=== PATIENT | female | born 1950 | race Native Hawaiian/Other Pacific Islander ===

== ENCOUNTER 2019-09-27 11:05 | Emergency (ER) | payer MEDICARE ==
--- NOTE | 2019-09-27 11:41 | Event Note ---
ED Screening Note Date of service: 09/27/19 Time: 11:37 ED Screening Note: 69 y.o. F. that presents to the ER with right sided abdominal pain and diarrhea x 2 months. Reports pain worse this week. States everything she eat or drink it come back out. 09/19/19 scheduled for cholecystectomy with [facility] and unable due to insurance. This initial assessment/diagnostic orders/clinical plan/treatment(s) is/are subject to change based on patients health status, clinical progression and re- assessment by fellow clinical providers in the ED. Further treatment and workup at subsequent clinical providers discretion. Patient/guardian urged not to elope from the ED as their condition may be serious if not clinically assessed and managed. Initial orders include: Labs CT of abdomen and pelvis
--- NOTE | 2019-09-27 12:38 | Emergency Department Report ---
ED Abdominal Pain HPI - General Chief Complaint: Abdominal Pain Stated Complaint: SIDE PAIN Time Seen by Provider: 09/27/19 11:37 Source: patient Mode of arrival: Ambulatory Limitations: No Limitations - History of Present Illness Initial Comments: 69-year-old female presents to the emergency room for right upper quadrant pain for 2 months. Patient reports that she was told that she has gallstones. Patient admits to nausea no vomiting but diarrhea x1 week. Patient states that she was scheduled to have surgery at [facility] but [facility] does not accept her insurance. Patient reports that the pain to the right upper quadrant radiates to her right back and shoulder. Patient states that she has a history of gastritis but Mylanta and Desitin is not helping. Patient reports she is not able to drink or eat secondary to pain and diarrhea. Patient reports the pain is worse with breathing she has lost weight. She reports her pain is a 7-8 out of 10. She has an allergy to flu and trazodone. Patient has a past medical history of hypertension gallstones hypothyroidism and glaucoma. Location: RUQ Radiation: back (right upper back and shoulder blade) Severity: severe Severity scale (0 -10): 7 Quality: stabbing, aching Consistency: constant Improves With: nothing Worsens With: other (Deep breath and movement) Associated Symptoms: nausea, diarrhea - Related Data Previous Rx's Medication Instructions Recorded Last Taken Type Acetaminophen/Codeine [Tylenol 1 tab PO Q6H PRN #12 tab 09/27/19 Unknown Rx /Codeine # 3 tab] Allergies Allergy/AdvReac Type Severity Reaction Status Date / Time Influenza Virus Vaccines Allergy Unknown Verified 09/27/19 12:42 trazodone Allergy Unknown Verified 09/27/19 12:42 ED Review of Systems ROS: Stated complaint: SIDE PAIN Other details as noted in HPI Comment: All other systems reviewed and negative ED Past Medical Hx - Past Medical History Previous Medical History?: Yes Hx Hypertension: Yes Additional medical history: gallstones. hypothyroid. glaucoma - Social History Smoking Status: Never Smoker Substance Use Type: None - Medications Home Medications: Home Medications Medication Instructions Recorded Confirmed Last Taken Type Acetaminophen/Codeine [Tylenol 1 tab PO Q6H PRN #12 tab 09/27/19 Unknown Rx /Codeine # 3 tab] ED Physical Exam - General Limitations: No Limitations General appearance: alert - Head Head exam: Present: atraumatic, normocephalic - Eye Eye exam: Present: normal appearance - ENT ENT exam: Present: mucous membranes dry - Neck Neck exam: Present: normal inspection, full ROM - GI/Abdominal GI/Abdominal exam: Present: soft, tenderness - Extremities Exam Extremities exam: Present: normal inspection, full ROM - Back Exam Back exam: Present: normal inspection, full ROM - Neurological Exam Neurological exam: Present: alert, oriented X3 - Psychiatric Psychiatric exam: Present: normal affect, normal mood - Skin Skin exam: Present: warm, dry, intact, normal color. Absent: rash ED Course Vital Signs 09/27/19 11:35 Temperature 97.5 F L Pulse Rate 70 Respiratory 18 Rate Blood Pressure 149/95 O2 Sat by Pulse 96 Oximetry ED Medical Decision Making - Lab Data Result diagrams: 09/27/19 12:02 09/27/19 12:02 - Radiology Data Radiology results: report reviewed Patient: ROSIO MURRAY MR#: [id number] : 1950 Acct:[id number] Age/Sex: 69 / F ADM Date: 09/27/19 Loc: ED Attending Dr: Ordering Physician: CRISTOBAL TEMPLE Date of Service: 09/27/19 Procedure(s): CT abdomen pelvis w con Accession Number(s): [id number] cc: CRISTOBAL TEMPLE CT abdomen pelvis w con INDICATION: right sided abdominal pain. TECHNIQUE: All CT scans at this location are performed using the following dose modulation technique: Automated exposure control. Helical slices were obtained through the abdomen and pelvis. 100 cc of Omnipaque 300 is administered. COMPARISON: None available. FINDINGS: Abdomen: Heart is enlarged. There is fatty infiltration of the liver. There is a small hypodensity in the right lobe of the liver is too small to characterize but likely represents a cyst. The spleen, pancreas, adrenal glands, and right kidney show no acute abnormality. There is a cyst in the mid left kidney. There is no adenopathy. The aorta is normal in diameter. There is no obstruction, inflammation, or free air. There are no abnormal fluid collections. Pelvis: The appendix is unremarkable. There is no obstruction or inflammation. There are no abnormal collections. There is mild wall thickening noted in the rectum which may be due to the collapsed state of the bowel. This could represent proctitis. There are no abnormal fluid collections. On review of bone windows, no acute osseous abnormalities are seen. Postoperative changes are noted in the lower lumbar spine. There are degenerative changes noted in the imaged spine. There is degenerative change in the hips. IMPRESSION: 1. There is no obstruction, inflammation, or free air. There are no abnormal fluid collections. There is mild apparent wall thickening in the rectum which may simply be due to the collapsed state of the bowel. There is possible this could represent proctitis. Signer Name: Albert Gonsalez MD Signed: 09/27/2019 2:21 PM Workstation Name: [id number] Transcribed By: Dictated By: Albert Gonsalez MD Electronically Authenticated By: Albert Gonsalez MD Signed Date/Time: 09/27/191420 DD/ 14 TD/TT: - Medical Decision Making 69-year-old female presents to the emergency room for right upper quadrant pain for 2 months. Patient reports that she was told that she has gallstones. Patient admits to nausea no vomiting but diarrhea x1 week. Patient states that she was scheduled to have surgery at [facility] but [facility] does not accept her insurance. Patient reports that the pain to the right upper quadrant radiates to her right back and shoulder. Patient states that she has a history of gastritis but Mylanta and Desitin is not helping. Patient reports she is not able to drink or eat secondary to pain and diarrhea. Patient reports the pain is worse with breathing she has lost weight. She reports her pain is a 7-8 out of 10. She has an allergy to flu and trazodone. Patient has a past medical history of hypertension gallstones hypothyroidism and glaucoma. CBC, CMP, lipase, CT of abdomen, urinalysis Please take pain medication as needed. Increase your fluid intake. Follow-up with surgery of given the information below for your convenience. Take Imodium right ear 2 mg with first loose stool and may repeat with a second loose stool. Do not consume more than 8 mg of Imodium in 24 hours. Please take Zofran as needed for nausea. Por favor, tome analgsicos segn sea necesario. Aumente la ingesta de lquidos. Seguimiento con ciruga de yared la informacin a continuacin para sousa conveniencia. [place] Imodium odo derecho 2 mg con las primeras heces sueltas y puede repetir con un blanca taburete suelto. No consuma ms de 8 mg de Imodium en 24 horas. Por favor, tome Zofran segn sea necesario para las nuseas. Critical care attestation.: If time is entered above; I have spent that time in minutes in the direct care of this critically ill patient, excluding procedure time. ED Disposition Clinical Impression: Right upper quadrant abdominal pain, Diarrhea Is pt being admited?: No Does the pt Need Aspirin: No Condition: Stable Instructions: Abdominal Pain (ED) Additional Instructions: Please take pain medication as needed. Increase your fluid intake. Follow-up with surgery of given the information below for your convenience. Take Imodium right ear 2 mg with first loose stool and may repeat with a second loose stool. Do not consume more than 8 mg of Imodium in 24 hours. Please take Zofran as needed for nausea. Por favor, tome analgsicos segn sea necesario. Aumente la ingesta de lquidos. Seguimiento con ciruga de yared la informacin a continuacin para sousa conveniencia. [place] Imodium odo derecho 2 mg con las primeras heces sueltas y puede repetir con un blanca taburete suelto. No consuma ms de 8 mg de Imodium en 24 horas. Por favor, tome Zofran segn sea necesario para las nuseas. Prescriptions: Acetaminophen/Codeine [Tylenol /Codeine # 3 tab] 1 tab PO Q6H PRN #12 tab PRN Reason: Pain , Severe (7-10) Referrals: PRIMARY CARE, [Primary Care Provider] - 3-5 Days SAM CHANG DO [Staff Physician] - 3-5 Days
[2019-09-27 12:39] LABS: Alanine Aminotransferase 16 units/L (7-56); Albumin 4.2 g/dL (3.9-5); BUN/Creatinine Ratio 16; Blood Urea Nitrogen 8 mg/dL (7-17); Calcium 9.4 mg/dL (8.4-10.2); Hemolysis Index 3
[2019-09-27] MEDS ORDERED: ONDANSETRON 4 MG/2 ML INJ IV ONE (12:40)
[2019-09-27] MEDS ORDERED: SODIUM CHLORIDE 0.9% 1000 ML 1,000 ML IV ONE (12:40)
[2019-09-27] MEDS ORDERED: MORPHINE 2 MG/1 ML INJ IV ONE (12:40)
[2019-09-27 12:50] LABS: Basophils % (Auto) 1.1 % (0.0-1.8); Eosinophils # (Auto) 0.1 K/mm3 (0.0-0.4); Eosinophils % (Auto) 2.4 % (0.0-4.3); Hematocrit 40.5 % (30.3-42.9); Hemoglobin 13.9 gm/dl (10.1-14.3); Lymphocytes # (Auto) 0.8 K/mm3 (1.2-5.4); Mean Corpuscular HGB Conc 34 % (30-34); Mean Corpuscular Volume 99 fl (79-97); Monocytes # (Auto) 0.6 K/mm3 (0.0-0.8); Monocytes % (Auto) 14.1 % (0.0-7.3); Platelet Count 264 K/mm3 (140-440); Red Blood Count 4.09 M/mm3 (3.65-5.03); Red Cell Distribution Width 13.9 % (13.2-15.2)
[2019-09-27 13:22] LABS: Bilirubin,Urine NEG (Negative); Blood,Urine NEG (Negative); Color,Urine Yellow (Yellow); Mucus,Urine FEW /HPF; Protein,Urine <15 mg/dL mg/dL (Negative); Urobilinogen,Urine < 2.0 mg/dL (<2.0)
--- NOTE | 2019-09-27 14:25 | Cat Scan Report ---
CT abdomen pelvis w con INDICATION: right sided abdominal pain. TECHNIQUE: All CT scans at this location are performed using the following dose modulation technique: Automated exposure control. Helical slices were obtained through the abdomen and pelvis. 100 cc of Omnipaque 30 0 is administered. COMPARISON: None available. FINDINGS: Abdomen: Heart is enlarged. There is fatty infiltration of the liver. There is a small hypodensity in the right lobe of the liver is too small to characterize but likely represents a cyst. The spleen, p ancreas, adrenal glands, and right kidney show no acute abnormality. There is a cyst in the mid left kidney. There is no adenopathy. The aorta is normal in diameter. There is no obstruction, inflammatio n, or free air. There are no abnormal fluid collections. Pelvis: The appendix is unremarkable. There is no obstruction or inflammation. There are no abnormal collections. There is mild wall thickening noted in the rectum which may be due to the collapsed state of the jeffry l. This could represent proctitis. There are no abnormal fluid collections. On review of bone windows, no acute osseous abnormalities are seen. Postoperative changes are noted in the lower lumbar spine. There are degenerative changes noted in the imaged spine. There is degenerative change in the hips. IMPRESSION: 1. There is no obstruction, inflammation, or free air. There are no abnormal fluid collections. There is mild apparent wall thickening in the rectum which may simply be due to the collapsed state o f the bowel. There is possible this could represent proctitis. Signer Name: Albert Gonsalez MD Signed: 09/27/2019 2:21 PM Workstation Name: [id number]
--- NOTE | 2019-09-27 15:19 | Event Note ---
Date: 09/27/19 This is a 69-year-old female presenting with a few months of right upper quadrant pain. She reports ultrasounds at other facilities have demonstrated gallstones. She was referred to outpatient surgeons, after being seen at other hospitals, but apparently has not been able to follow-up for symptomatic biliary colic secondary to her outpatient referrals not being in her insurance network. She is not currently tachypneic, tachycardic, or hypoxic, and she denies DVT and pulmonary embolism risk factors. There is no Llanos sign. The patient's pain was treated. She was observed in the emergency room for hours. She did not clinically decompensate. She will be referred to our local outpatient general surgeons, who can schedule her for elective outpatient treatment for presumed symptomatic biliary colic. EKG shows a sinus rhythm, 60 bpm, normal axis, low voltage, QTC within normal limits, poor R wave progression, nonspecific T wave abnormalities. It is abnormal, there is no prior for comparison, its not a STEMI Print Report Referring Physician: AG KWON Patient Name: ROSIO MURRAY Date of : 1950 Sex: Female Report Date: 2019-09-27 Report Status: Finalized Findings [facility] [address] [place] [address] Cat Scan Report Signed Patient: ROSIO MURRAY MR#: [id number] : 1950 Acct:[id number] Age/Sex: 69 / F ADM Date: 09/27/19 Loc: ED Attending Dr: Ordering Physician: CRISTOBAL TEMPLE Date of Service: 09/27/19 Procedure(s): CT abdomen pelvis w con Accession Number(s): [id number] cc: CRISTOBAL TEMPLE CT abdomen pelvis w con INDICATION: right sided abdominal pain. TECHNIQUE: All CT scans at this location are performed using the following dose modulation technique: Automated exposure control. Helical slices were obtained through the abdomen and pelvis. 100 cc of Omnipaque 300 is administered. COMPARISON: None available. FINDINGS: Abdomen: Heart is enlarged. There is fatty infiltration of the liver. There is a small hypodensity in the right lobe of the liver is too small to characterize but likely represents a cyst. The spleen, pancreas, adrenal glands, and right kidney show no acute abnormality. There is a cyst in the mid left kidney. There is no adenopathy. The aorta is normal in diameter. There is no obstruction, inflammation, or free air. There are no abnormal fluid collections. Pelvis: The appendix is unremarkable. There is no obstruction or inflammation. There are no abnormal collections. There is mild wall thickening noted in the rectum which may be due to the collapsed state of the bowel. This could represent proctitis. There are no abnormal fluid collections. On review of bone windows, no acute osseous abnormalities are seen. Postoperative changes are noted in the lower lumbar spine. There are degenerative changes noted in the imaged spine. There is degenerative change in the hips. IMPRESSION: 1. There is no obstruction, inflammation, or free air. There are no abnormal fluid collections. There is mild apparent wall thickening in the rectum which may simply be due to the collapsed state of the bowel. There is possible this could represent proctitis. Signer Name: Albert Gonsalez MD Signed: 09/27/2019 2:21 PM Workstation Name: [id number] Transcribed By: Dictated By: Albert Gonsalez MD Electronically Authenticated By: Albert Gonsalez MD Signed Date/Time: 09/27/19 1421 DD/ 1415 Vital Signs 09/27/19 11:35 Temperature 97.5 F L Pulse Rate 70 Respiratory 18 Rate Blood Pressure 149/95 O2 Sat by Pulse 96 Oximetry Lab Results 09/27/19 09/27/19 09/27/19 Range/Units 12:02 12:02 12:02 WBC 4.1 L (4.5-11.0) K/mm3 RBC 4.09 (3.65-5.03) M/mm3 Hgb 13.9 (10.1-14.3) gm/dl Hct 40.5 (30.3-42.9) % MCV 99 H (79-97) fl MCH 34 H (28-32) pg MCHC 34 (30-34) % RDW 13.9 (13.2-15.2) % Plt Count 264 (140-440) K/mm3 Lymph % (Auto) 19.0 (13.4-35.0) % King % (Auto) 14.1 H (0.0-7.3) % Eos % (Auto) 2.4 (0.0-4.3) % Baso % (Auto) 1.1 (0.0-1.8) % Lymph # 0.8 L (1.2-5.4) K/mm3 King # 0.6 (0.0-0.8) K/mm3 Eos # 0.1 (0.0-0.4) K/mm3 Baso # 0.0 (0.0-0.1) K/mm3 Seg Neutrophils % 63.4 (40.0-70.0) % Seg Neutrophils # 2.6 (1.8-7.7) K/mm3 Sodium 140 (137-145) mmol/L Potassium 4.2 (3.6-5.0) mmol/L Chloride 104.0 (98-107) mmol/L Carbon Dioxide 21 L (22-30) mmol/L Anion Gap 19 mmol/L BUN 8 (7-17) mg/dL Creatinine 0.5 L (0.7-1.2) mg/dL Estimated GFR > 60 ml/min BUN/Creatinine Ratio 16 % Glucose 111 H (65-100) mg/dL Calcium 9.4 (8.4-10.2) mg/dL Total Bilirubin 0.60 (0.1-1.2) mg/dL AST 18 (5-40) units/L ALT 16 (7-56) units/L Alkaline Phosphatase 56 (35-129) units/L Total Protein 7.9 (6.3-8.2) g/dL Albumin 4.2 (3.9-5) g/dL Albumin/Globulin Ratio 1.1 % Lipase 38 (13-60) units/L Urine Color (Yellow) Urine Turbidity (Clear) Urine pH (5.0-7.0) Ur Specific [place] (1.003-1.030) Urine Protein (Negative) mg/dL Urine Glucose (UA) (Negative) mg/dL Urine Ketones (Negative) mg/dL Urine Blood (Negative) Urine Nitrite (Negative) Urine Bilirubin (Negative) Urine Urobilinogen (<2.0) mg/dL Ur Leukocyte Esterase (Negative) Urine WBC (Auto) (0.0-6.0) /HPF Urine RBC (Auto) (0.0-6.0) /HPF U Epithel Cells (Auto) (0-13.0) /HPF Urine Mucus /HPF 09/27/19 Range/Units 13:11 WBC (4.5-11.0) K/mm3 RBC (3.65-5.03) M/mm3 Hgb (10.1-14.3) gm/dl Hct (30.3-42.9) % MCV (79-97) fl MCH (28-32) pg MCHC (30-34) % RDW (13.2-15.2) % Plt Count (140-440) K/mm3 Lymph % (Auto) (13.4-35.0) % King % (Auto) (0.0-7.3) % Eos % (Auto) (0.0-4.3) % Baso % (Auto) (0.0-1.8) % Lymph # (1.2-5.4) K/mm3 King # (0.0-0.8) K/mm3 Eos # (0.0-0.4) K/mm3 Baso # (0.0-0.1) K/mm3 Seg Neutrophils % (40.0-70.0) % Seg Neutrophils # (1.8-7.7) K/mm3 Sodium (137-145) mmol/L Potassium (3.6-5.0) mmol/L Chloride (98-107) mmol/L Carbon Dioxide (22-30) mmol/L Anion Gap mmol/L BUN (7-17) mg/dL Creatinine (0.7-1.2) mg/dL Estimated GFR ml/min BUN/Creatinine Ratio % Glucose (65-100) mg/dL Calcium (8.4-10.2) mg/dL Total Bilirubin (0.1-1.2) mg/dL AST (5-40) units/L ALT (7-56) units/L Alkaline Phosphatase (35-129) units/L Total Protein (6.3-8.2) g/dL Albumin (3.9-5) g/dL Albumin/Globulin Ratio % Lipase (13-60) units/L Urine Color Yellow (Yellow) Urine Turbidity Clear (Clear) Urine pH 5.0 (5.0-7.0) Ur Specific [place] 1.020 (1.003-1.030) Urine Protein <15 mg/dl (Negative) mg/dL Urine Glucose (UA) Neg (Negative) mg/dL Urine Ketones Neg (Negative) mg/dL Urine Blood Neg (Negative) Urine Nitrite Neg (Negative) Urine Bilirubin Neg (Negative) Urine Urobilinogen < 2.0 (<2.0) mg/dL Ur Leukocyte Esterase Neg (Negative) Urine WBC (Auto) 2.0 (0.0-6.0) /HPF Urine RBC (Auto) 1.0 (0.0-6.0) /HPF U Epithel Cells (Auto) 1.0 (0-13.0) /HPF Urine Mucus Few /HPF
[2019-09-27] MEDS ORDERED: ACETAMINOPHEN W/CODEINE 300-30 MG TAB PO ONE (16:45)
[2019-09-27 16:47] VITALS: BP 133/60
== END 2019-09-27 19:00 | disposition home or self-care (01) ==
LOC: ED 11:05
DX: R10.31 Right lower quadrant pain (principal); R11.0 Nausea; R19.7 Diarrhea, unspecified; I10 Essential (primary) hypertension; E03.9 Hypothyroidism, unspecified; Z88.8 Allergy status to other drugs, medicaments and biological substances
CPT/HCPCS: 36415; 74177; 80053; 81001; 83690; 85025; 93005; 93010; 96361; 96374; 96375; 99284; J2270; J2405; J7030; Q9966